=== PATIENT | male | born 1950 | race Caucasian/White ===

== ENCOUNTER 2021-09-28 07:56 | Outpatient (CLI) ==
--- NOTE | 2021-09-28 12:02 | XRAY Report ---
PROCEDURE: Knee 4 View RT INDICATIONS: RIGHT KNEE PAIN TECHNIQUE: 4 views of the right knee and one view of the left knee acquired. COMPARISON: None. FINDINGS: Bones: No acute fractures or dislocations. No suspicious bony lesions. Mild symmetric narrowing of the medial femorotibial compartment joint spaces bilaterally. Mild anterior compartment joint space narrowing is also seen on the right. Soft tissues: Small right joint effusion. Chondrocalcinosis is noted in the right knee. IMPRESSION: 1.Mild right medial and anterior compartment osteoarthrosis. 2.Small joint effusion. 3.Chondrocalcinosis. Reviewed by: Amos Ford MD on 09/28/2021 12:01 PM PST Approved by: Amos Ford MD on 09/28/2021 12:01 PM PST Station ID: [id number]
== END 2021-09-28 07:57 | disposition home or self-care (01) ==
LOC: DI.WOS 07:56
PROVIDERS: ATTEND Orthopaedic Surgery
DX: M17.11 Unilateral primary osteoarthritis, right knee (principal); M25.461 Effusion, right knee; M11.261 Other chondrocalcinosis, right knee

== ENCOUNTER 2022-01-08 15:07 | Outpatient (CLI) | payer BC ==
--- NOTE | 2022-01-08 16:51 | MRI Report ---
PROCEDURE: Knee RT W/O INDICATIONS: RIGHT KNEE PAIN,CONCERN FOR MENISCUS TEAR TECHNIQUE: Noncontrast sagittal PD fast spin echo and T2 fast spin echo with fat saturation, sagittal 3-D gradie nt sequence with fat saturation; coronal T1 spin echo and PD fast spin echo with fat saturation, and axial PD fast spin echo with fat saturation through the knee. COMPARISON: None. FINDINGS: Image quality: Excellent. Menisci: Linear oblique high signal intensity traverses the anterior, middle, and peripheral third of the posterior horn and body of the medial meniscus, demonstrating inferior articular surface extensi on, indicating oblique tearing. Superimposed radial tear of the middle third of the posterior horn me dial meniscus is present. Lateral meniscus is grossly intact. Cruciate ligaments: The anterior and posterior cruciate ligaments appear intact. Medial structures: The medial collateral ligament appears intact. Visualized portions of the pes ans erinus tendons appear normal. No abnormal bursal fluid. Lateral structures: The lateral collateral ligament, long and short heads of the biceps femoris tend on appear intact. The popliteus tendon appears normal. Iliotibial band appears normal. Anterior structures: The quadriceps and patellar tendons appear intact. Patellar alignment is akin l. No femoral trochlear dysplasia or ventral trochlear prominence. No edema in the infrapatellar fa t pad. Bones and cartilage: No bone marrow contusions or fractures mild tricompartmental periarticular oste ophyte formation. Mild articular cartilage loss diffusely overlies the weightbearing aspects of the m edial femoral condyle and medial tibial plateau. Severe articular cartilage loss overlies the medial patellar facet. Joint space: There is a small knee joint effusion and a small Hubbard's cyst. Normal appearing synovi al plicae are incidentally noted. IMPRESSION: 1. Complex tearing of the medial meniscus. 2. Tricompartmental osteoarthritis with associated articular cartilage loss. 3. Knee joint effusion and Hubbard's cyst. Reviewed by: Abdifatah Stahl MD on 01/08/2022 4:50 PM PDT Approved by: Abdifatah Stahl MD on 01/08/2022 4:50 PM PDT Station ID: [id number]
== END 2022-01-08 15:08 | disposition home or self-care (01) ==
LOC: DI 15:07
PROVIDERS: ATTEND Family Medicine
DX: S83.231A Complex tear of medial meniscus, current injury, right knee, initial encounter (principal); M17.11 Unilateral primary osteoarthritis, right knee; M94.261 Chondromalacia, right knee; M25.461 Effusion, right knee; M71.21 Synovial cyst of popliteal space [Baker], right knee

== ENCOUNTER 2022-01-30 07:37 | Outpatient (CLI) | payer BC ==
--- NOTE | 2022-01-30 10:24 | DEXA Report ---
PROCEDURE: Dexa Spine and/or Hip INDICATIONS: AAA SCREENING, CHRONIC USE OF STEROIDS TECHNIQUE: Dual energy x-ray absorptiometry (DXA) was performed on a [employer] System. Regions measur ed are the AP Spine, femoral neck, and if needed forearm. COMPARISON: None. FINDINGS: Lumbar Spine: Bone Mineral Density 1.270 g/cm/cm,T score 0.4, normal Left Hip: Bone Mineral Density 1.063 g/cm/cm,T score -0.3, normal Left Femoral Neck: Bone Mineral Density 0.926 g/cm/cm, T score -1.1, osteopenia (T score greater or equal to -1.0: NORMAL) (T score from -1.1 to -2.4: OSTEOPENIA) (T score less than or equal to -2.5 to: OSTEOPOROSIS) Impression: Mildly decreased bone mineral density within the left femoral neck within the osteopenia range. Patients with diagnosis of osteoporosis or osteopenia should have regular bone mineral density assess ment. For those eligible for Medicare, routine testing is allowed once every 2 years. Testing frequ ency can be increased for patients who have rapidly progressing disease or for those who are receivin g medical therapy to restore bone mass. Reviewed by: Amos Ford MD on 01/30/2022 10:23 AM PDT Approved by: Amos Ford MD on 01/30/2022 10:23 AM PDT Station ID: [id number]
--- NOTE | 2022-01-30 15:32 | Ultrasound Report ---
PROCEDURE: Aorta Screening INDICATIONS: AAA SCREENING, CHRONIC USE OF STEROIDS TECHNIQUE: Real time scanning was performed of the aorta and iliac arteries, with image documentatio n. COMPARISON: FINDINGS: Aorta: Proximal aortic diameter measures 2.9 x 2.8 cm. Mid-aorta measures 2.2 x 2.4 cm. Distal aor tic diameter is 2.0 x 1.9 cm. Iliac arteries: Right common iliac artery measures 1.5 x 1.3 cm. Left common iliac artery measures 1.5 x 1.3 cm. IMPRESSION: Prominent ectasia within the proximal portion of the aorta. Calcified plaque is noted. Reviewed by: Noreen Del Angel MD on 01/30/2022 3:31 PM PDT Approved by: Noreen Del Angel MD on 01/30/2022 3:31 PM PDT Station ID: [id number]
== END 2022-01-30 07:38 | disposition home or self-care (01) ==
LOC: DI 07:37
PROVIDERS: ATTEND Family Medicine
DX: Z00.00 Encounter for general adult medical examination without abnormal findings (principal); Z13.6 Encounter for screening for cardiovascular disorders; M35.3 Polymyalgia rheumatica; Z79.52 Long term (current) use of systemic steroids; Z13.820 Encounter for screening for osteoporosis; I77.819 Aortic ectasia, unspecified site; M85.88 Other specified disorders of bone density and structure, other site; Z87.891 Personal history of nicotine dependence